=== PATIENT | female | born 1975 | race Caucasian/White ===

== ENCOUNTER 2024-07-04 18:17 | Emergency (ER) | payer MEDICAID, OTHER ==
[~2024-07-04] VITALS: Ht 162.6 cm; Wt 59.0 kg
[2024-07-04 18:21] VITALS: BP 142/82; TEMP 98.3; O2SAT 99
[2024-07-04] MEDS ORDERED: CLIN300C12 PO (18:44)
[2024-07-04] MEDS ORDERED: IBUP-1490 PO (19:19)
== END 2024-07-04 19:41 | disposition home or self-care (01) ==
LOC: ER 18:26
DX: K04.7 Periapical abscess without sinus (principal); Z79.899 Other long term (current) drug therapy